=== PATIENT | female | born 1975 | race African-American/Black ===

== ENCOUNTER 2024-04-22 16:55 | Emergency (ER) | payer OTHER ==
[2024-04-22 17:02] VITALS: BP 125/76; PULSE 99; RESP 18; TEMP 98.4; BMI 28.7
[2024-04-22 20:05] LABS: BASO % 0.5 % (0-2.0); EOS % 1.1 % (0-4.5); HEMATOCRIT 37.5 % (32.4-45.2); HEMOGLOBIN 11.9 GM/dL (10.7-15.3); LYMPH % 35.6 % (8-40); MCH 26.2 pg (25.7-33.7); MCHC 31.8 g/dl (32.0-36.0); MEAN CELL VOLUME 82.3 fl (80-96); MONO % 8.3 % (3.8-10.2); NEUT % 54.5 % (42.8-82.8); PLATELET COUNT 258 10^3/uL (134-434); RBC 4.55 M/mm3 (3.60-5.2); RDW 17.6 % (11.6-15.6); URINE APPEARANCE CLEAR; URINE BILIRUBIN NEGATIVE (NEGATIVE); URINE COLOR YELLOW; URINE GLUCOSE (UA) NEGATIVE (NEGATIVE); URINE KETONE NEGATIVE (NEGATIVE); URINE LEUK ESTERASE NEGATIVE (NEGATIVE); URINE NITRITE NEGATIVE (NEGATIVE); URINE PROTEIN NEGATIVE (NEGATIVE); URINE UROBILINOGEN 0.2 mg/dL (0.2-1.0); WHITE BLOOD COUNT 7.9 K/mm3 (4.0-10.0)
[2024-04-22 20:10] LABS: INR 1.06 (0.83-1.09); PROTHROMBIN TIME (PATIENT) 12.2 SEC (9.7-13.0)
[2024-04-22 20:12] LABS: ACTIVATED PTT 32.7 SECONDS (25.2-36.5)
[2024-04-22 20:31] LABS: POTASSIUM 4.3 mmol/L (3.5-5.1)
[2024-04-22 20:33] LABS: ALBUMIN 3.3 g/dl (3.4-5.0); BLOOD UREA NITROGEN 6.9 mg/dL (7-18); CALCIUM 9.1 mg/dL (8.5-10.1)
[2024-04-22 20:37] LABS: CREATININE 0.6 mg/dL (0.55-1.3)
[2024-04-22 20:38] LABS: BILIRUBIN,TOTAL 0.3 mg/dL (0.2-1); TOT PROT 7.1 g/dl (6.4-8.2)
[2024-04-22] MEDS ORDERED: ONDANSETRON *ODT* 4 MG TABLET SL ONE (20:53)
[2024-04-22] MEDS ORDERED: ONDANSETRON *ODT* 4 MG TABLET ONE (20:56)
== END 2024-04-22 21:25 | disposition home or self-care (01) ==
LOC: JER 16:55
DX: N83.201 Unspecified ovarian cyst, right side (principal); R10.2 Pelvic and perineal pain
CPT/HCPCS: 36415; 76830-TC; 80053; 81003; 84703; 85025; 85610; 85730; 86850; 86900; 86901; 87086; 99284-25

== ENCOUNTER 2024-05-07 16:09 | Emergency (ER) | payer OTHER ==
[2024-05-07 16:14] VITALS: BMI 28.3
[2024-05-07 17:39] LABS: BASO % 0.5 % (0-2.0); EOS % 0.9 % (0-4.5); HEMATOCRIT 31.4 % (32.4-45.2); HEMOGLOBIN 10.1 GM/dL (10.7-15.3); LYMPH % 26.7 % (8-40); MCH 26.6 pg (25.7-33.7); MCHC 32.3 g/dl (32.0-36.0); MEAN CELL VOLUME 82.5 fl (80-96); MONO % 10.4 % (3.8-10.2); NEUT % 61.5 % (42.8-82.8); PLATELET COUNT 270 10^3/uL (134-434)
[2024-05-07 17:46] LABS: INR 1.07 (0.83-1.09); PROTHROMBIN TIME (PATIENT) 12.1 SEC (9.7-13.0)
[2024-05-07 17:49] LABS: ACTIVATED PTT 30.4 SECONDS (25.2-36.5)
[2024-05-07 17:55] LABS: POTASSIUM 3.8 mmol/L (3.5-5.1)
[2024-05-07 17:57] LABS: ALBUMIN 3.2 g/dl (3.4-5.0); BLOOD UREA NITROGEN 4.5 mg/dL (7-18); CALCIUM 8.4 mg/dL (8.5-10.1)
[2024-05-07 18:00] LABS: CREATININE 0.8 mg/dL (0.55-1.3)
[2024-05-07 18:02] LABS: BILIRUBIN,TOTAL 0.2 mg/dL (0.2-1); TOT PROT 6.8 g/dl (6.4-8.2)
[2024-05-07 18:23] LABS: EPI CELLS 13 /uL (0-25.1); HYALINE CASTS 1 /uL (0-3.1); PH,URINE 8.5 (5.0-8.0); URINE APPEARANCE CLOUDY; URINE BACTERIA 47 /uL (0-1359); URINE BILIRUBIN NEGATIVE (NEGATIVE); URINE COLOR RED; URINE GLUCOSE (UA) NEGATIVE (NEGATIVE); URINE KETONE NEGATIVE (NEGATIVE); URINE LEUK ESTERASE TRACE (NEGATIVE); URINE NITRITE NEGATIVE (NEGATIVE); URINE PROTEIN 2+ (NEGATIVE); URINE RBC 10756 /uL (0-23.9); URINE WBC 10 /uL (0-25.8)
[2024-05-07 20:29] VITALS: BP 127/81; PULSE 89; RESP 18; TEMP 98.1
== END 2024-05-07 20:28 | disposition home or self-care (01) ==
LOC: JER 16:09
DX: N93.9 Abnormal uterine and vaginal bleeding, unspecified (principal)
CPT/HCPCS: 36415; 76830-TC; 80053; 81003; 84703; 85025; 85610; 85730; 86850; 86900; 86901; 87086; 99284-25

== ENCOUNTER 2024-05-23 04:27 | Day surgery (SDC) | payer OTHER ==
[2024-05-18 12:04] VITALS: BMI 28.7
[2024-05-23] MEDS ORDERED: PROPOFOL 20 ML ONE (07:41)
[2024-05-23] MEDS ORDERED: MIDAZOLAM HCL 2 MG/2 ML SINGLE DOSE VIAL ONE (07:41)
[2024-05-23] MEDS ORDERED: LIDOCAINE HCL/PF 2% SDV 5ML VIAL ONE (07:42)
[2024-05-23] MEDS ORDERED: DEXAMETHASONE SOD PHOSPHATE 4 MG/1 ML VIAL ONE (08:51)
[2024-05-23] MEDS ORDERED: ONDANSETRON 4 MG/2 ML VIAL ONE (08:51)
[2024-05-23] MEDS ORDERED: oxyCODONE HCL 5 MG TABLET PO PRN (08:56)
[2024-05-23] MEDS ORDERED: ONDANSETRON 4 MG/2 ML VIAL IVPUSH PRN (08:56)
[2024-05-23] MEDS ORDERED: LACTATED RINGERS SOLUTION 1,000 ML IV SCH (09:00)
[2024-05-23] MEDS ORDERED: ACETAMINOPHEN 325 MG TABLET (FP) PO PRN (09:36)
[2024-05-23] MEDS ORDERED: IBUPROFEN 400 MG TABLET (FP) PO PRN (09:36)
[2024-05-23 12:36] VITALS: BP 95/58; PULSE 80; RESP 16; TEMP 97.8
== END 2024-05-23 12:36 | disposition home or self-care (01) ==
LOC: JASU-SURG 04:27
PROVIDERS: ATTEND Obstetrics & Gynecology
PROC: 0UDB8ZZ Extraction of Endometrium, Via Natural or Artificial Opening Endoscopic (ICD-10-PCS; principal; 2024-05-23 08:00)
DX: N93.9 Abnormal uterine and vaginal bleeding, unspecified (principal)
CPT/HCPCS: 81025; 88305-TC; 94760

== ENCOUNTER 2024-06-05 20:27 | Emergency (ER) | payer OTHER ==
[2024-06-05 20:44] VITALS: RESP 18; BMI 29.8
[2024-06-05 21:32] LABS: BASO % 0.5 % (0-2.0); EOS % 1.2 % (0-4.5); LYMPH % 34.5 % (8-40); MCH 23.9 pg (25.7-33.7); MCHC 30.9 g/dl (32.0-36.0); MEAN CELL VOLUME 77.3 fl (80-96); MEAN PLT VOLUME 7.4 fl (7.5-11.1); NEUT % 54.8 % (42.8-82.8); PLATELET COUNT 393 10^3/uL (134-434); RBC 2.85 M/mm3 (3.60-5.2); RDW 17.7 % (11.6-15.6); WHITE BLOOD COUNT 8.9 K/mm3 (4.0-10.0)
[2024-06-05 21:37] LABS: HEMOGLOBIN 6.8 GM/dL (10.7-15.3)
[2024-06-05 21:45] LABS: INR 1.13 (0.83-1.09); PROTHROMBIN TIME (PATIENT) 12.7 SEC (9.7-13.0)
[2024-06-06 02:02] VITALS: BP 107/58; PULSE 78; TEMP 98.1
== END 2024-06-06 02:17 | disposition home or self-care (01) ==
LOC: JER 20:27
DX: N93.9 Abnormal uterine and vaginal bleeding, unspecified (principal); R06.00 Dyspnea, unspecified; R42 Dizziness and giddiness
CPT/HCPCS: 36415; 36430; 85025; 85610; 86850; 86900; 86901; 86922; 99283-25; P9058

== ENCOUNTER 2024-10-05 19:19 | Emergency (ER) | payer OTHER ==
[2024-10-05 19:28] VITALS: BP 134/77; PULSE 84; RESP 18; TEMP 98.3; BMI 29.0
[2024-10-05] MEDS ORDERED: ACETAMINOPHEN INJECTION 100 ML ONE (20:24)
[2024-10-05 20:30] LABS: BASO % 0.5 % (0-2.0); EOS % 2.3 % (0-4.5); HEMATOCRIT 34.9 % (32.4-45.2); HEMOGLOBIN 11.4 GM/dL (10.7-15.3); LYMPH % 42.8 % (8-40); MCH 26.2 pg (25.7-33.7); MCHC 32.6 g/dl (32.0-36.0); MEAN CELL VOLUME 80.2 fl (80-96); MEAN PLT VOLUME 7.8 fl (7.5-11.1); MONO % 7.9 % (3.8-10.2); NEUT % 46.5 % (42.8-82.8); PLATELET COUNT 269 10^3/uL (134-434); RBC 4.35 M/mm3 (3.60-5.2); WHITE BLOOD COUNT 7.7 K/mm3 (4.0-10.0)
[2024-10-05] MEDS: ACETAMINOPHEN 1000 MG/100 ML BAG IVPB ONE (20:31)
[2024-10-05 20:34] LABS: INR 1.11 (0.83-1.09); PROTHROMBIN TIME (PATIENT) 12.1 SEC (9.7-13.0)
[2024-10-05 20:36] LABS: ACTIVATED PTT 32.4 SECONDS (25.2-36.5)
[2024-10-05 20:45] LABS: POTASSIUM 4.1 mmol/L (3.5-5.1)
[2024-10-05 20:46] LABS: CALCIUM 8.8 mg/dL (8.5-10.1)
[2024-10-05 20:47] LABS: ALBUMIN 3.3 g/dl (3.4-5.0)
[2024-10-05 20:50] LABS: CREATININE 0.8 mg/dL (0.55-1.3)
[2024-10-05 20:52] LABS: BILIRUBIN,TOTAL 0.2 mg/dL (0.2-1); TOT PROT 7.2 g/dl (6.4-8.2)
[2024-10-05 22:04] LABS: EPI CELLS 7 /uL (0-25.1); HYALINE CASTS 1 /uL (0-3.1); URINE APPEARANCE CLEAR; URINE BACTERIA 28 /uL (0-1359); URINE BILIRUBIN NEGATIVE (NEGATIVE); URINE COLOR YELLOW; URINE GLUCOSE (UA) NEGATIVE (NEGATIVE); URINE KETONE TRACE (NEGATIVE); URINE LEUK ESTERASE NEGATIVE (NEGATIVE); URINE NITRITE NEGATIVE (NEGATIVE); URINE PROTEIN NEGATIVE (NEGATIVE); URINE RBC 14 /uL (0-23.9); URINE UROBILINOGEN 0.2 mg/dL (0.2-1.0); URINE WBC 4 /uL (0-25.8)
== END 2024-10-05 22:37 | disposition home or self-care (01) ==
LOC: JERFT 19:19 → JER 19:19 → JERFT 22:37
PROC: 3E033NZ Introduction of Analgesics, Hypnotics, Sedatives into Peripheral Vein, Percutaneous Approach (ICD-10-PCS; principal; 2024-10-05)
DX: O09.529 Supervision of elderly multigravida, unspecified trimester (principal); O20.9 Hemorrhage in early pregnancy, unspecified; O99.891 Other specified diseases and conditions complicating pregnancy; R42 Dizziness and giddiness; R06.02 Shortness of breath; R51.9 Headache, unspecified; Z3A.00 Weeks of gestation of pregnancy not specified
CPT/HCPCS: 36415; 80053; 81003; 84703; 85025; 85610; 85730; 86850; 86900; 86901; 87086; 93005; 93010; 99284-25; J0131